=== PATIENT | male | born 1930 | race Caucasian/White ===

== ENCOUNTER 2018-02-10 21:44 | Emergency (ER) ==
--- NOTE | 2018-02-10 21:51 | ED.PDOC ---
General ED Provider: Dr. KAYLEE MAR-ER Chief Complaint: Bite Stated Complaint: i pulled a tick off Time Seen by Physician: 21:49 Mode of Arrival: Walk-In Information Source: Patient Exam Limitations: No limitations Primary Care Provider: KAYLEE MAR Nursing and Triage Documentation Reviewed and Agree: Yes Reviewed sepsis parameters & appropriate labs ordered?: Yes System Inflammatory Response Syndrome: Not Applicable Sepsis Protocol: For patient's 13 years and over: Temp is 96.8 and below OR 101 and greater Pulse >90 BPM Resp >20/minute Acutely Altered Mental Status Are patient's symptoms suggestive of a new infection, such as: -Pneumonia -Skin, Soft Tissue -Endocarditis -UTI -Bone, Joint Infection -Implantable Device -Acute Abdominal Infection -Wound Infection -Meningitis -Blood Stream Catheter Infection -Unknown Skin Complaint Exam - Skin/Soft Tissue Complaint/Exam Onset/Duration: 24 hrs Symptoms Are: Still present Timing: Constant Initial Severity: Mild Current Severity: Mild Location: left inguinal area Character: Reports: Redness, Swelling, Raised Aggravating: Reports: None Alleviating: Reports: None Associated Signs and Symptoms: Reports: Tenderness, Red streaks Related History: Reports: Insect bite/sting Related Surgical History: Reports: None Recent Exposure to Others w/Similar Symptoms: No Skin Findings: Present: Erythema Joint Tenderness Present: No Differential Diagnoses: Infection Review of Systems - Review Of Systems Constitutional: Reports: No symptoms Eyes: Reports: No symptoms Ears, Nose, Mouth, Throat: Reports: No symptoms Respiratory: Reports: No symptoms Cardiac: Reports: No symptoms GI: Reports: No symptoms : Reports: No symptoms Musculoskeletal: Reports: No symptoms Skin: Reports: Lesions Neurological: Reports: No symptoms Endocrine: Reports: No symptoms Hematologic/Lymphatic: Reports: No symptoms All Other Systems: Reviewed and Negative Past Medical History - Past Medical History Previously Healthy: No Endocrine: Reports: Dyslipidemia Cardiovascular: Reports: None Respiratory: Reports: None Hematological: Reports: None Gastrointestinal: Reports: None Genitourinary: Reports: None Neuro/Psych: Reports: TIA Musculoskeletal: Reports: Arthritis Cancer: Reports: None - Surgical History General Surgical History: Reports: Orthopedic (SHOULDER IMPLANT), Hernia Repair , Other (--MELANOMA--EYE SURG --HEMORRHOIDS--CATARACT) - Family History Family History: Reports: Unknown - Social History Smoking Status: Never smoker Hx Substance Use: No Alcohol Screening: None Physical Exam - Physical Exam Appearance: Well-appearing, No pain distress, Well-nourished Eyes: JOVANNY, EOMI, Conjunctiva clear ENT: Ears normal, Nose normal, Oropharynx normal Neck: Supple Respiratory: Airway patent Cardiovascular: RRR, Pulses normal, No rub, No murmur GI/: Soft, Nontender, No masses, Bowel sounds normal, No Organomegaly Musculoskeletal: Normal strength, ROM intact, No edema, No calf tenderness Skin: Warm, Dry, Normal color Neurological: Sensation intact, Motor intact, Reflexes intact, Cranial nerves intact, Alert, Oriented Psychiatric: Affect appropriate, Mood appropriate Critical Care Note - Critical Care Note Total Time (mins): 0 Departure - Departure Time of Disposition: 21:51 Disposition: HOME SELF-CARE Discharge Problem: Tick bite Qualifiers: Encounter type: initial encounter Qualified Code(s): W57.XXXA - Bitten or stung by nonvenomous insect and other nonvenomous arthropods, initial encounter Instructions: Tick Bite (ED) Condition: Good Pt referred to PMD for follow-up: Yes IPMP verified?: No Additional Instructions: doxycycline 100mg bid x 7 days--wash with soap and water--call me if any fever Allergies/Adverse Reactions: Allergies acetaminophen [From Lortab] Adverse Reaction (Verified 03/23/16 14:45) alprazolam [From Xanax] Adverse Reaction (Verified 03/23/16 14:45) amitriptyline HCl [From Elavil] Adverse Reaction (Verified 03/23/16 14:45) buspirone HCl [From BuSpar] Adverse Reaction (Verified 03/23/16 14:45) diclofenac [Diclofenac] Adverse Reaction (Verified 03/23/16 14:45) diclofenac sodium [From Voltaren] Adverse Reaction (Verified 03/23/16 14:45) escitalopram oxalate [From Lexapro] Adverse Reaction (Verified 03/23/16 14:45) gabapentin Adverse Reaction (Verified 03/23/16 14:45) hydrocodone bitartrate [From Lortab] Adverse Reaction (Verified 03/23/16 14:45) imipramine HCl [From Tofranil] Adverse Reaction (Verified 03/23/16 14:45) metaxalone [From Skelaxin] Adverse Reaction (Verified 03/23/16 14:45) nabumetone [From Relafen] Adverse Reaction (Verified 03/23/16 14:45) olanzapine [From Zyprexa] Adverse Reaction (Verified 03/23/16 14:45) oxaprozin [From Daypro] Adverse Reaction (Verified 03/23/16 14:45) oxycodone [Oxycodone] Adverse Reaction (Verified 03/23/16 14:45) Penicillins Adverse Reaction (Verified 03/23/16 14:45) pregabalin [From Lyrica] Adverse Reaction (Verified 03/23/16 14:45) risperidone [From Risperdal] Adverse Reaction (Verified 03/23/16 14:45) topiramate [From Topamax] Adverse Reaction (Verified 03/23/16 14:45) trazodone Adverse Reaction (Verified 03/23/16 14:45) Home Medications: Ambulatory Orders Carboxymethylcellulose Sodium [Thera Tears] 1 each OP PRN PRN 03/19/14 Clopidogrel Bisulfate [Plavix] 75 mg PO DAILY 03/19/14 Duloxetine HCl [Cymbalta] 90 mg PO DAILY 03/19/14 Lactulose 20 gm PO DAILY 03/19/14 Lorazepam [Ativan] 1 mg PO BID 03/19/14 Mineral Oil 17 gr PO DAILY 03/19/14 Mirtazapine [Remeron] 15 mg PO BEDTIME 03/19/14 [place]-3 Fatty Acids/Fish Oil [Fish Oil 1,200 mg Softgel] 1 each PO DAILY Omeprazole [Prilosec] 20 mg PO QDAC 03/19/14 Polyethylene Glycol 3350 [Miralax] 17 gm PO DAILY 03/19/14 Pravastatin Sodium [Pravachol] 40 mg PO BEDTIME 03/19/14 Psyllium Seed [Metamucil] 1 packet PO DAILY 03/19/14 Timolol Maleate [Timoptic] 1 drop OP BID 03/19/14 Dimethicone [Monistat Soothing Care] 1 applic TP BID PRN #42 gel..gram. Tamsulosin HCl [Flomax] 0.4 mg PO DAILY 03/23/16 Triamcinolone Acetonide [Kenalog 0.1%] 1 applic TP BID PRN #30 gm 03/23/16 Disposition Discussed With: Patient, Family
[2018-02-10 21:58] VITALS: BP 156/84; TEMP 99.6; BMI 33.0
== END 2018-02-10 22:05 | disposition home or self-care (01) ==
LOC: ED 21:44
DX: S30.861A Insect bite (nonvenomous) of abdominal wall, initial encounter (principal); W57.XXXA Bitten or stung by nonvenomous insect and other nonvenomous arthropods, initial encounter
CPT/HCPCS: 99282

== ENCOUNTER 2018-03-24 14:45 | Outpatient (CLI) ==
--- NOTE | 2018-03-25 08:47 | DI ---
Exam: Four views of the left ribs. Comparison: None available. Reason for exam: Lower rib pain after fall. FINDINGS: No displaced left-sided rib fractures are seen. There is left basilar atelectasis without focal consolidation or pleural effusion. No pneumothorax is seen in the left hemithorax. Impression: No displaced left-sided rib fractures are seen with mild left basilar atelectasis.
== END 2018-03-24 14:46 | disposition home or self-care (01) ==
LOC: RAD 14:45
PROVIDERS: ATTEND Family Medicine
DX: R07.89 Other chest pain (principal)

== ENCOUNTER 2019-02-04 11:36 | Outpatient (CLI) | payer OTHER | END 2019-02-04 12:01 | disposition short-term general hospital (02) | LOC: AMBL 11:36 | PROVIDERS: ATTEND Emergency Medicine | DX: M62.81 Muscle weakness (generalized) (principal) ==